=== PATIENT | female | born 2000 | race Caucasian/White ===

== ENCOUNTER → 2018-03-31 | Outpatient (CLI) | payer OTHER ==
--- NOTE | 2018-04-02 16:17 | NM ---
EXAMINATION TYPE: NM hepatobiliary w EF DATE OF EXAM: 03/31/2018 COMPARISON: NONE HISTORY: 17 year old female epigastric pain, decrease in appetite, reflux. TECHNIQUE: After the intravenous administration of 4.93 mCi Tc 99m Mebrofenin hepatobiliary scintigra phy is performed. Immediate images post injection. FINDINGS: There is satisfactory initial accumulation of tracer by the liver. The gallbladder is visualized wit hin 16 minutes. The small bowel activity is noted within 8 minutes. At one hour 8 ounces of oral en sure plus is given to mimic CCK and gallbladder ejection fraction is calculated at 89 %, elevated abo ve the expected range. IMPRESSION: No scintigraphic evidence for acute/chronic cholecystitis or biliary dyskinesia. However, gallbladder EF is elevated above the expected range. This can be seen in the setting of gallbladder hyperkinesis .
== END | disposition home or self-care (01) ==
LOC: RADNMMAIN 15:02
PROVIDERS: ATTEND Internal Medicine
DX: R10.11 Right upper quadrant pain (principal)
CPT/HCPCS: 78226; A9537

== ENCOUNTER → 2018-08-15 | Outpatient (CLI) | payer OTHER ==
--- NOTE | 2018-08-15 10:26 | CT ---
EXAMINATION TYPE: CT abdomen w con DATE OF EXAM: 08/15/2018 COMPARISON: None HISTORY: RUQ pain and nausea. CT DLP: 331.8 mGycm Automated exposure control for dose reduction was used. TECHNIQUE: Helical acquisition of images was performed from the lung bases through the top of iliac crest to include entire abdomen. CONTRAST: Performed with Oral Contrast and with IV Contrast, patient injected with 100 mL of Isovue 300. FINDINGS: LUNG BASES: No significant abnormality is appreciated. LIVER/GB: Liver may be reduced in attenuation. This can be seen with hepatic steatosis.. PANCREAS: No significant abnormality is seen. SPLEEN: No significant abnormality is seen. ADRENALS: No significant abnormality is seen. KIDNEYS: No significant abnormality is seen. BOWEL: There is thickening along the gastric antrum which could been the basis of incomplete distenti on. Correlate clinically. LYMPH NODES: No significant abnormality is seen. OSSEOUS STRUCTURES: No significant abnormality is seen. OTHER: Aorta of normal caliber IMPRESSION: THERE IS THICKENING OF THE WALL THE GASTRIC ANTRUM. CORRELATE CLINICALLY FOR SYMPTOMS OF GASTRITIS OR PEPTIC ULCER DISEASE AND WITH DIRECT VISUALIZATION CLINICALLY WARRANTED. CORRELATE FOR HEPATIC STEATOSIS.
== END | disposition home or self-care (01) ==
LOC: RADCTMAIN 09:05
PROVIDERS: ATTEND Surgery
DX: K31.89 Other diseases of stomach and duodenum (principal)
CPT/HCPCS: 74160; Q9967

== ENCOUNTER → 2018-10-03 | Outpatient (CLI) | payer OTHER ==
[2018-10-03 10:55] LABS: HCT 39.1 % (34.0-46.0); HGB 12.8 gm/dL (11.4-16.0); MCH 28.6 pg (25.0-35.0); MCHC 32.8 g/dL (31.0-37.0); MCV 87.2 fL (80.0-100.0); Mean Platelet Volume 6.8; Platelet Count 290 k/uL (150-450); RBC 4.48 m/uL (3.80-5.40); RDW 13.3 % (11.5-15.5); WBC 6.2 k/uL (4.0-11.0)
[2018-10-03 11:51] LABS: Basophils # (M) 0.06 k/uL (0-0.2); Eosinophils # (M) 0.31 k/uL (0-0.7); Myelocytes # (M) 0.06 k/uL (0); Nucleated Red Blood Cells 0 /100 WBC (0-0)
[2018-10-03 11:52] LABS: Plasma Cells # (M) 0.06 k/uL (0)
[2018-10-03 11:55] LABS: Monocytes # (M) 0.37 k/uL (0-1.0); Neutrophils # (M) 3.16 k/uL (1.3-7.7); Neutrophils % (M) 51 %; Total Cells Counted 100
[2018-10-03 11:56] LABS: Anisocytosis (M) Present
[2018-10-03 18:31] LABS: African American GFR (CKD) 144.6 (60.0-200.0); Albumin 4.3 g/dL (3.80-4.90); Albumin/Globulin Ratio 1.95 (1.60-3.17); Anion Gap 8.3 mmol/L (4.00-12.00); BUN/Creat Ratio 15.71 Ratio (12.00-20.00); Calcium 9.5 mg/dL (8.7-10.3); Carbon Dioxide 23.7 mmol/L (21.6-31.8); Globulin 2.2 g/dL (1.6-3.3); Potassium 4.6 mmol/L (3.5-5.5); Total Bilirubin 0.3 mg/dL (0.2-1.2); Total Protein 6.5 g/dL (6.2-8.2)
== END | disposition home or self-care (01) ==
LOC: LABWHC1 09:53
PROVIDERS: ATTEND Internal Medicine
DX: R11.0 Nausea (principal)
CPT/HCPCS: 36415; 80053; 82150; 83690; 85025

== ENCOUNTER → 2019-03-12 | Outpatient (CLI) | payer OTHER ==
[2019-03-12 15:21] LABS: Basophils % (A) 1 %; Eosinophils % (A) 1 %; HCT 38.3 % (34.0-46.0); HGB 12.8 gm/dL (11.4-16.0); Lymphocytes # (A) 2.6 k/uL (1.0-4.8); Lymphocytes % (A) 40 %; MCH 28.5 pg (25.0-35.0); MCHC 33.3 g/dL (31.0-37.0); MCV 85.5 fL (80.0-100.0); Mean Platelet Volume 7.2; Monocytes # (A) 0.5 k/uL (0-1.0); Monocytes % (A) 8 %; Neutrophils % (A) 47 %; Platelet Count 323 k/uL (150-450); RBC 4.48 m/uL (3.80-5.40); RDW 12.7 % (11.5-15.5); WBC 6.4 k/uL (4.0-11.0)
[2019-03-12 19:28] LABS: African American GFR (CKD) 144.6 (60.0-200.0); Albumin 4.6 g/dL (3.80-4.90); Albumin/Globulin Ratio 1.92 (1.60-3.17); Anion Gap 9.7 mmol/L (4.00-12.00); BUN/Creat Ratio 14.29 Ratio (12.00-20.00); Calcium 9.7 mg/dL (8.7-10.3); Carbon Dioxide 24.3 mmol/L (21.6-31.8); Globulin 2.4 g/dL (1.6-3.3); Non-African American GFR(CKD) 124.7 (60.0-200.0); Potassium 4.1 mmol/L (3.5-5.5); Total Bilirubin 0.4 mg/dL (0.3-1.2)
== END | disposition home or self-care (01) ==
LOC: LABWHC1 14:30
PROVIDERS: ATTEND Internal Medicine
DX: R11.0 Nausea (principal)
CPT/HCPCS: 36415; 80053; 83735; 85025